=== PATIENT | male | born 1965 | race American Indian/Alaskan Native ===

== ENCOUNTER 2019-01-10 22:14 | Emergency (ER) | payer MEDICAID ==
[2019-01-10] MEDS ORDERED: IBUPROFEN PO ONE (23:59)
[2019-01-10] MEDS ORDERED: PEPCID PO ONE (23:59)
[2019-01-10] MEDS ORDERED: TYLENOL PO ONE (23:59)
--- NOTE | 2019-01-11 | XRay Report ---
CHEST 2 VIEWS INDICATION / CLINICAL INFORMATION: Chest Pain. COMPARISON: None available. FINDINGS: SUPPORT DEVICES: None. HEART / MEDIASTINUM: Mild enlargement of the cardiac silhouette. LUNGS / PLEURA: No significant pulmonary or pleural abnormality. No pneumothorax. ADDITIONAL FINDINGS: No significant additional findings. IMPRESSION: 1. No acute findings. Signer Name: Zach Vaughn MD Signed: 01/10/2019 11:55 PM Workstation Name: [id number]
--- NOTE | 2019-01-11 00:01 | Emergency Department Report ---
ED Chest Pain HPI - General Chief Complaint: Chest Pain Stated Complaint: CHEST PAIN,BODYACHES Time Seen by Provider: 01/10/19 23:48 Source: patient, RN notes reviewed Mode of arrival: Ambulatory Limitations: No Limitations - History of Present Illness Initial Comments: This is a 53-year-old gentleman. The patient is not known to this provider previously Primary care Dr.: Dr. Valdes Pain physician, Dr. Ware Past medical history: Narcotic dependence, DJD, Aliza-Schlatter, chronic back pain The patient presents to the ER with a complaint of 3 days acute on chronic back pain. The back pain is sharp and throbbing and does not radiate anywhere. He states the pain is sometimes so severe, that he has bilateral chest wall pain. The chest wall pain does not radiate to the neck or arms. There is no vomiting or diaphoresis. There is no exertional shortness of breath. There is no recent aspirin consumption. The patient denies DVT, pulmonary embolus risk factors. He endorses a tertiary complaint of subjective rash on his bilateral feet which is nonpruritic, and he believes that he may have poison mariangel. MD Complaint: chest pain, other -: days(s) Pain Location: epigastric Pain Radiation: none Severity: moderate Quality: aching Consistency: intermittent Improves With: nothing Worsens With: nothing Aspirin use within the Past 7 Days: (0) No - Related Data Allergies Allergy/AdvReac Type Severity Reaction Status Date / Time No Known Allergies Allergy Verified 01/11/19 00:48 Heart Score - HEART Score History: Slightly suspicious EKG: Non-specific Age: 45-65 Risk factors: No known risk factors Troponin: < normal limit HEART Score: 2 - Critical Actions Critical Actions: 0-3 pts:0.9-1.7%risk of adverse cardiac event.Candidate for discharge ED Review of Systems ROS: Stated complaint: CHEST PAIN,BODYACHES Other details as noted in HPI Constitutional: denies: fever Eyes: denies: eye discharge ENT: denies: epistaxis Respiratory: denies: cough Cardiovascular: chest pain Gastrointestinal: denies: vomiting Musculoskeletal: back pain, arthralgia, myalgia Skin: lesions Neurological: denies: weakness ED Past Medical Hx - Past Medical History Hx Arthritis: Yes Additional medical history: Degenerative disc disease - Social History Smoking Status: Unknown if ever smoked Substance Use Type: None ED Physical Exam - General Limitations: No Limitations General appearance: alert, in no apparent distress - Head Head exam: Present: atraumatic, normocephalic - Eye Eye exam: Present: normal appearance, EOMI. Absent: nystagmus - ENT ENT exam: Present: normal exam, normal orophraynx, mucous membranes moist, normal external ear exam - Neck Neck exam: Present: normal inspection, full ROM. Absent: tenderness, meningismus - Respiratory Respiratory exam: Present: normal lung sounds bilaterally. Absent: respiratory distress - Cardiovascular Cardiovascular Exam: Present: regular rate, normal rhythm, normal heart sounds. Absent: bradycardia, tachycardia, irregular rhythm, systolic murmur, diastolic murmur, rubs, gallop - GI/Abdominal GI/Abdominal exam: Present: soft. Absent: distended, tenderness, guarding, rebound, rigid, pulsatile mass - Rectal Rectal exam: Present: deferred - Extremities Exam Extremities exam: Present: normal inspection, full ROM, other (2+ pulses noted in the bilateral upper, lower extremities. Compartments soft. No long bony tenderness. The pelvis is stable.). Absent: pedal edema, joint swelling, calf tenderness - Back Exam Back exam: Present: normal inspection, full ROM. Absent: tenderness, CVA tenderness (R), CVA tenderness (L), paraspinal tenderness, vertebral tenderness - Neurological Exam Neurological exam: Present: alert, oriented X3, other (Extraocular movements intact. Tongue midline. No facial droop. Facial sensation intact to light touch in the V1, V2, V3 distribution bilaterally. 5 and 5 strength in 4 extremities.. Sensation is intact to light touch in 4 extremities.) - Psychiatric Psychiatric exam: Present: flat affect - Skin Skin exam: Present: warm, dry, intact, normal color. 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 Filled ID Written Drug QTY Days Prescriber Rx # Pharmacy * Refills Daily Dose Pymt Type STOGIE PACKER 01/01/2019 1 12/31/2018 OXYCODONE HCL 20 MG TABLET 84.0 21 [place] ODE [id number] [facility] ([id number]) 0 120.0 [facility] [place] 01/01/2019 1 12/31/2018 GBOUCH-[id number]-KIFD 50-325-40 21.0 3 [place] O[place] [id number] [facility] ([id number]) 0 [place] 01/01/2019 1 12/31/2018 ZOLPIDEM TARTRATE 10 MG TABLET 16.0 22 [place] ODE [id number] [facility] ([id number]) 0 [place] 12/11/2018 1 12/11/2018 OXYCODONE HCL 20 MG TABLET 84.0 21 [place] ODE [id number] [facility] ([id number]) 0 120.0 [place] 12/11/2018 1 12/11/2018 GASFVM-VLKIINFL-SVSU 50-325-40 21.0 3 [place] ODE [id number] [facility] ([id number]) 0 [place] 11/20/2018 1 11/19/2018 OXYCODONE HCL 20 MG TABLET 84.0 21 [place] ODE [id number] [facility] ([id number]) 0 120.0 [place] 11/20/2018 1 11/19/2018 UZCRSP-YOEWMHGW-NRYV 50-325-40 21.0 3 [place] ODE [id number] [facility] ([id number]) 0 [place] 10/30/2018 1 10/29/2018 OXYCODONE HCL 20 MG TABLET 84.0 21 [place] ODE [id number] [facility] ([id number]) 0 120.0 [place] 10/30/2018 1 10/30/2018 APHWGW-FGQDTPDS-ABFS 50-325-40 21.0 3 [place] KRO [id number] [facility] ([id number]) 0 [place] 10/09/2018 1 10/08/2018 OXYCODONE HCL 20 MG TABLET 84.0 21 [place] ODE [id number] [facility] ([id number]) 0 120.0 [place] 10/09/2018 1 10/08/2018 WMJEPH-MCTLBWCB-KIYS 50-325-40 21.0 3 [place] ODE [id number] [facility] ([id number]) 0 [place] 09/18/2018 1 09/17/2018 OXYCODONE HCL 20 MG TABLET 84.0 21 [place] ODE [id number] [facility] ([id number]) 0 120.0 [place] 09/18/2018 1 09/17/2018 IWVFJO-AILCYYZM-AQWV 50-325-40 21.0 3 [place] ODE [id number] [facility] ([id number]) 0 [place] 08/28/2018 1 08/27/2018 OXYCODONE HCL 20 MG TABLET 84.0 21 [place] ODE [id number] [facility] ([id number]) 0 120.0 [place] 08/28/2018 1 08/27/2018 DXKULW-YZYGYIAD-LWVS 50-325-40 21.0 3 [place] ODE [id number] [facility] ([id number]) 0 [place] 08/07/2018 1 08/07/2018 OXYCODONE HCL 20 MG TABLET 84.0 21 [place] ODE [id number] [facility] ([id number]) 0 120.0 [place] 08/07/2018 1 08/07/2018 SSDBQU-ORHSPAMW-DZSN 50-325-40 21.0 3 [place] O[place] [id number] [facility] ([id number][place] 07/17/2018 1 07/16/2018 OXYCODONE HCL 20 MG TABLET 84.0 21 [place] ODE [id number] [facility] ([id number]) 0 120.0 [place] 07/17/2018 1 07/16/2018 UZFXGM-ILXLDECY-UYGA 50-325-40 21.0 3 [place] ODE [id number] [facility] ([id number]) 0 [place] 06/26/2018 1 06/26/2018 OXYCODONE HCL 20 MG TABLET 84.0 21 [place] ODE [id number] [facility] ([id number]) 0 120.0 [place] 06/26/2018 1 06/26/2018 HCKOHN-CYAMXYAY-CEFY 50-325-40 21.0 3 [place] ODE [id number] [facility] ([id number]) 0 [place] 06/05/2018 1 06/03/2018 OXYCODONE HCL 20 MG TABLET 84.0 21 [place] ODE [id number] [facility] ([id number]) 0 120.0 [place] 06/05/2018 1 06/03/2018 HGIWCL-BIZKOEVE-LIEH 50-325-40 21.0 3 [place] ODE [id number] [facility] ([id number][place] 05/15/2018 1 05/13/2018 OXYCODONE HCL 20 MG TABLET 84.0 21 [place] ODE [id number] [facility] ([id number]) 0 120.0 [place] 05/15/2018 1 05/13/2018 HIDVZN-JUQSAVWT-USXK 50-325-40 21.0 3 [place] O[place] [id number] [facility] ([id number]) 0 [place] 04/24/2018 1 04/22/2018 OXYCODONE HCL 20 MG TABLET 84.0 21 [place] ODE [id number] [facility] ([id number]) 0 120.0 [place] 04/24/2018 1 04/22/2018 XWXHYV-GIJYWAVE-SFKL 50-325-40 21.0 7 [place] ODE [id number] [facility] ([id number]) [place] 04/03/2018 1 03/29/2018 OXYCODONE HCL 20 MG TABLET 84.0 21 PE LONNIE [id number] [facility] ([id number]) 0 120.0 [place] JOSÉ ANTONIO score - José Antonio Score Age > 65: (0) No Aspirin use within the Past 7 Days: (0) No 3 or more CAD Risk Factors: (0) No 2 or more Angina events in past 24 hrs: (0) No Known CAD with more than 50% Stenosis: (0) No Elevated Cardiac Markers: (0) No ST Deviation Greater than 0.5mm: (0) No JOSÉ ANTONIO Score: 0 ED Medical Decision Making - Lab Data Result diagrams: 01/10/19 23:49 01/10/19 23:49 Vital Signs 01/10/19 22:28 Temperature 98.0 F Pulse Rate 81 Respiratory 18 Rate Blood Pressure 129/83 O2 Sat by Pulse 96 Oximetry Lab Results 01/10/19 01/10/19 01/11/19 Range/Units 23:49 23:49 00:20 WBC 5.2 (4.5-11.0) K/mm3 RBC 4.71 (3.65-5.03) M/mm3 Hgb 14.2 (11.8-15.2) gm/dl Hct 42.8 (35.5-45.6) % MCV 91 (84-94) fl MCH 30 (28-32) pg MCHC 33 (32-34) % RDW 14.4 (13.2-15.2) % Plt Count 175 (140-440) K/mm3 Lymph % (Auto) 32.7 (13.4-35.0) % Treasure % (Auto) 8.2 H (0.0-7.3) % Eos % (Auto) 6.9 H (0.0-4.3) % Baso % (Auto) 1.0 (0.0-1.8) % Lymph # 1.7 (1.2-5.4) K/mm3 Treasure # 0.4 (0.0-0.8) K/mm3 Eos # 0.4 (0.0-0.4) K/mm3 Baso # 0.1 (0.0-0.1) K/mm3 Seg Neutrophils % 51.2 (40.0-70.0) % Seg Neutrophils # 2.6 (1.8-7.7) K/mm3 Sodium 139 (137-145) mmol/L Potassium 3.9 (3.6-5.0) mmol/L Chloride 104.7 (98-107) mmol/L Carbon Dioxide 23 (22-30) mmol/L Anion Gap 15 mmol/L BUN 16 (9-20) mg/dL Creatinine 1.0 (0.8-1.5) mg/dL Estimated GFR > 60 ml/min BUN/Creatinine Ratio 16 % Glucose 122 H (75-100) mg/dL Calcium 8.5 (8.4-10.2) mg/dL Magnesium 1.60 L (1.7-2.3) mg/dL Total Bilirubin < 0.20 (0.1-1.2) mg/dL AST 18 (5-40) units/L ALT 18 (7-56) units/L Alkaline Phosphatase 68 (35-129) units/L Total Creatine Kinase 202 H (55-170) units/L Total Protein 7.5 (6.3-8.2) g/dL Albumin 4.2 (3.9-5) g/dL Albumin/Globulin Ratio 1.3 % - EKG Data -: EKG Interpreted by Pr EKG shows normal: sinus rhythm Rate: normal - EKG Data 01/11/19 00:44 There is no prior EKG available for comparison. EKG #1 demonstrates normal sinus, 65 beats minute, borderline rightward axis deviation, negatively defle cted QRS aVL, QTC 371 ms, the EKG is not consistent with ST elevation myocardial infarction. EKG #2 shows a normal axis, isoelectric aVL QRS complex, otherwise unremarkable. Suspect initial EKG had lead reversal. Neither EKG is consistent with ST elevation myocardial infarction. - Radiology Data Radiology results: report reviewed, image reviewed X-ray the chest is negative for acute disease - Medical Decision Making Differential diagnosis, including not limited to: Chronic back pain, DJD, radiculopathy, GERD, gastritis, hiatal hernia, pneumonia, acute coronary syndrome Assessment and plan: 53-year-old gentleman with a primary complaint of back pain, secondary complaints of chest pain, tertiary complaint of rash Complaint #1, back pain: As per review of [place] prescription monitoring database, patient on multiple controlled substances. He is moving 4 extremities spontaneously, neurovascularly intact, does not demonstrate any historical or physical exam features suggestive of epidural compression or AAA. He'll need to follow up with his private pain specialist for his chronic pain Complaint #2, chest pain. Chest discomfort present for 72 hours. Troponin negative 1, EKG essentially unchanged 2. Given pain of multiple days, and symptoms greater than 8 hours, as per the [employer] clinical policy, myocardial infarction may be excluded with 1 set of cardiac enzymes. Equal pulses in upper, lower extremities, not hypertensive, x- ray of the chest unremarkable, this is unlikely to be aortic disease. Not tachycardic, not hypoxic, noted DVT or pulmonary embolus risk factors, low risk by well's criteria, this is very unlikely to be thrombolic disease or pulmonary embolism. Complaint #3, rash on his lower extremities. On my examination, I do not appreciate any rash. Cutaneous exam is unremarkable. The patient does not appear to have an emergent medical condition at this time. He can follow-up as an outpatient primary care doctor, pain specialist and blue line operator. As per this institution's protocol and policy, he will be referred to our outpatient cardiology group for expedited risk stratification. His information will be sent to the [facility]'s [place] cardiology group. Critical care attestation.: If time is entered above; I have spent that time in minutes in the direct care of this critically ill patient, excluding procedure time. ED Disposition Clinical Impression: Chronic back pain, History of chest pain Disposition: TO HOME OR SELFCARE Is pt being admited?: No Does the pt Need Aspirin: No Condition: Stable Additional Instructions: Continue outpatient medications. Patient may take Pepcid, keom-ohy-unlckyn, 20 mg daily, and may take aspirin, ddzu-uan-nctmmjx, 81 mg daily. Recommend follow-up with an outpatient blue line operator within the next 3-5 days. Avoid consumption of Motrin, ibuprofen, Naprosyn, Aleve, heavy, spicy foods. Return to the emergency room right away with new, worsening or different symptoms, not present on initial emergency room evaluation. Rest, avoid heavy lifting, and avoid strenuous physical activities. Referrals: [facility] [Provider Group] - 3-5 Days
[2019-01-11 00:11] LABS: Basophils # (Auto) 0.1 K/mm3 (0.0-0.1); Eosinophils # (Auto) 0.4 K/mm3 (0.0-0.4); Eosinophils % (Auto) 6.9 % (0.0-4.3); Hematocrit 42.8 % (35.5-45.6); Hemoglobin 14.2 gm/dl (11.8-15.2); Lymphocytes # (Auto) 1.7 K/mm3 (1.2-5.4); Lymphocytes % (Auto) 32.7 % (13.4-35.0); Mean Corpuscular HGB Conc 33 % (32-34); Mean Corpuscular Volume 91 fl (84-94); Monocytes # (Auto) 0.4 K/mm3 (0.0-0.8); Monocytes % (Auto) 8.2 % (0.0-7.3); Platelet Count 175 K/mm3 (140-440); Red Blood Count 4.71 M/mm3 (3.65-5.03); Red Cell Distribution Width 14.4 % (13.2-15.2)
[2019-01-11 00:26] LABS: Alanine Aminotransferase 18 units/L (7-56); Albumin 4.2 g/dL (3.9-5); BUN/Creatinine Ratio 16; Blood Urea Nitrogen 16 mg/dL (9-20); Calcium 8.5 mg/dL (8.4-10.2); Hemolysis Index 7
[2019-01-11] MEDS ORDERED: MAG-OX PO STA (00:44)
[2019-01-11 01:13] VITALS: BP 135/87
== END 2019-01-11 02:13 | disposition home or self-care (01) ==
LOC: ED 22:14
DX: G89.29 Other chronic pain (principal); M54.9 Dorsalgia, unspecified; R07.89 Other chest pain; R21 Rash and other nonspecific skin eruption; M19.90 Unspecified osteoarthritis, unspecified site
CPT/HCPCS: 36415; 71046; 80053; 82550; 83735; 84484; 85025; 93005; 93010